=== PATIENT | female | born 1970 | race Caucasian/White ===

== ENCOUNTER 2017-10-19 08:29 | Emergency (ER) | payer MEDICAID ==
[~2017-10-19] VITALS: Ht 167.6 cm; Wt 114.7 kg
[~2017-10-19 08:29] MED LIST: CYCL5TAB PO; IBUPROFEN 600MG PO; NO HOME MEDS
[2017-10-19] MEDS ORDERED: IBUP-1984 PO (09:45)
[2017-10-19 09:57] VITALS: BP 150/82
== END 2017-10-19 09:58 | disposition home or self-care (01) ==
LOC: ER 08:30
DX: M54.5 Low back pain (principal); M25.562 Pain in left knee
CPT/HCPCS: 99283

== ENCOUNTER 2018-02-04 00:02 | Emergency (ER) | payer MEDICAID ==
[~2018-02-04] VITALS: Ht 165.1 cm; Wt 115.0 kg
[2018-02-04 00:41] VITALS: BP 112/64
== END 2018-02-04 00:47 | disposition home or self-care (01) ==
LOC: ER 00:03
DX: T23.051A Burn of unspecified degree of right palm, initial encounter (principal); S00.01XA Abrasion of scalp, initial encounter; F10.129 Alcohol abuse with intoxication, unspecified; X15.0XXA Contact with hot stove (kitchen), initial encounter; W01.198A Fall on same level from slipping, tripping and stumbling with subsequent striking against other object, initial encounter; Y93.89 Activity, other specified; Y92.89 Other specified places as the place of occurrence of the external cause; Y99.8 Other external cause status; Y90.9 Presence of alcohol in blood, level not specified
CPT/HCPCS: 99284